=== PATIENT | female | born 1980 ===

== ENCOUNTER 2024-03-30 10:37 | Outpatient (CLI) | payer OTHER ==
[~2024-03-30 10:37] MED LIST: MEDROL4 MG PO; XOPENEX HFA15 GM IH
== END 2024-03-30 10:40 | disposition home or self-care (01) ==
LOC: SONOGRAMA 10:37
DX: N60.39 Fibrosclerosis of unspecified breast (principal); Z12.39 Encounter for other screening for malignant neoplasm of breast